=== PATIENT | male | born 2005 | race Two or more races ===

== ENCOUNTER 2024-05-19 18:49 | Emergency (ER) | payer MEDICAID, SELFPAY ==
[2024-05-19 19:17] VITALS: BP 134/74; PULSE 72; RESP 18; TEMP 37.2; O2SAT 97; BMI 21.8
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
[2024-05-19] MEDS: IBUPROFEN TAB 600 MG TABLET PO (20:36)
== END 2024-05-19 21:07 | disposition home or self-care (01) ==
PROVIDERS: Emergency Provider Emergency Medicine
DX: S89.91XA Unspecified injury of right lower leg, initial encounter (principal); V43.52XA Car driver injured in collision with other type car in traffic accident, initial encounter
CPT/HCPCS: 73590; 99283; A9270

== ENCOUNTER 2024-05-23 12:06 | Emergency (ER) | payer MEDICAID, SELFPAY ==
[2024-05-23 12:08] VITALS: BMI 22.1
[2024-05-23 13:02] VITALS: BP 106/64; PULSE 65; RESP 16; TEMP 36.9; O2SAT 99; BMI 21.4
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
== END 2024-05-23 14:31 | disposition home or self-care (01) ==
PROVIDERS: Emergency Provider Emergency Medicine; PCP Family Medicine
DX: M25.571 Pain in right ankle and joints of right foot (principal)
CPT/HCPCS: 73610; 99283

== ENCOUNTER 2025-02-13 04:01 | Emergency (ER) | payer MEDICAID, SELFPAY ==
[2025-02-13 04:04] VITALS: BMI 22.1
[2025-02-13 04:13] VITALS: BP 138/73; PULSE 75; RESP 20; TEMP 36.9; O2SAT 98
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
[2025-02-13 08:01] VITALS: BP 127/76; PULSE 88; RESP 18; TEMP 36.6; O2SAT 100
== END 2025-02-13 10:10 | disposition home or self-care (01) ==
PROVIDERS: Emergency Provider Emergency Medicine
DX: M79.642 Pain in left hand (principal); R10.9 Unspecified abdominal pain; Y92.410 Unspecified street and highway as the place of occurrence of the external cause; V89.2XXA Person injured in unspecified motor-vehicle accident, traffic, initial encounter
CPT/HCPCS: 73120; 73562; 74176; 99283